=== PATIENT | female | born 1940 | race Two or more races ===

== ENCOUNTER 2019-11-13 09:51 | Emergency (ER) | payer OTHER ==
[~2019-11-13] VITALS: Ht 170.2 cm; Wt 66.7 kg
[2019-11-13] MEDS ORDERED: TENORMIN25 MG PO (10:12)
== END 2019-11-13 11:59 | disposition home or self-care (01) ==
LOC: ER 09:51
DX: S30.0XXA Contusion of lower back and pelvis, initial encounter (principal); W18.39XA Other fall on same level, initial encounter; Y93.11 Activity, swimming; Y92.89 Other specified places as the place of occurrence of the external cause; Y99.8 Other external cause status

== ENCOUNTER 2020-12-01 10:49 | Emergency (ER) | payer OTHER ==
[~2020-12-01] VITALS: Ht 170.2 cm; Wt 65.8 kg
[~2020-12-01 10:49] MED LIST: TENORMIN25 MG PO
[2020-12-01] MEDS ORDERED: CELEBREX100 MG PO (16:37)
== END 2020-12-01 17:41 | disposition home or self-care (01) ==
LOC: ER 10:49
DX: S52.592A Other fractures of lower end of left radius, initial encounter for closed fracture (principal); W01.198A Fall on same level from slipping, tripping and stumbling with subsequent striking against other object, initial encounter; Y93.41 Activity, dancing; Y92.89 Other specified places as the place of occurrence of the external cause; Y99.8 Other external cause status

== ENCOUNTER 2020-12-15 09:37 | Outpatient (CLI) | payer OTHER ==
[~2020-12-15 09:37] MED LIST changes: +CELEBREX100 MG PO
== END 2020-12-15 09:42 | disposition home or self-care (01) ==
LOC: RAD 09:37
PROVIDERS: ATTEND Orthopaedic Surgery
DX: S52.532A Colles' fracture of left radius, initial encounter for closed fracture (principal)

== ENCOUNTER 2021-01-08 14:09 | Outpatient (CLI) | payer OTHER | END 2021-01-08 14:18 | disposition home or self-care (01) | LOC: RAD 14:09 | PROVIDERS: ATTEND Orthopaedic Surgery | DX: S52.532D Colles' fracture of left radius, subsequent encounter for closed fracture with routine healing (principal) ==

== ENCOUNTER → 2021-02-20 | Outpatient (CLI) | payer OTHER | END | disposition home or self-care (01) | LOC: RAD 14:03 | PROVIDERS: ATTEND Orthopaedic Surgery | DX: S52.532D Colles' fracture of left radius, subsequent encounter for closed fracture with routine healing (principal) ==